=== PATIENT | male | born 1965 | race Caucasian/White ===

== ENCOUNTER 2017-11-01 12:19 | Emergency (ER) | payer OTHER ==
[~2017-11-01] VITALS: Ht 182.9 cm; Wt 108.9 kg
[2017-11-01] MEDS ORDERED: HYDR-971 PO (13:06)
[2017-11-01] MEDS ORDERED: CYCL-331 PO (13:06)
--- NOTE | 2017-11-01 13:06 | PHYS DOC ---
Past History Past Medical History: Diabetes, Hypertension Smoking: Non-smoker Adult General Chief Complaint Chief Complaint: BACK PAIN OR INJURY HPI HPI 52-year-old male patient complaining of sudden onset of left lower back pain since yesterday while moving heavy stuff above of his head and putting under his desk as a constant and sharp pain without radiation. Patient denies focal neurodeficit and urine and bowel incontinence. Patient denies pain in sitting position and complaining of pain with a standing up and bending over. Patient rated his pain 7/10 and does not want pain medication in ER. Review of Systems Review of Systems Constitutional: Denies fever or chills [] Eyes: Denies change in visual acuity, redness, or eye pain [] HENT: Denies nasal congestion or sore throat [] Respiratory: Denies cough or shortness of breath [] Cardiovascular: No additional information not addressed in HPI [] GI: Denies abdominal pain, nausea, vomiting, bloody stools or diarrhea [] : Denies dysuria or hematuria [] Musculoskeletal: Reports back pain or joint pain [] Integument: Denies rash or skin lesions [] Neurologic: Denies headache, focal weakness or sensory changes [] Endocrine: Denies polyuria or polydipsia [] All other systems were reviewed and found to be within normal limits, except as documented in this note. Allergies Allergies Allergies Coded Allergies Type Severity Reaction Last Updated Verified codeine Allergy Severe Anaphylaxis 11/01/17 Yes Physical Exam Physical Exam Constitutional: Well developed, well nourished, mild distress, non-toxic appearance. [] HENT: Normocephalic, atraumatic, bilateral external ears normal, oropharynx moist, no oral exudates, nose normal. [] Eyes: PERRLA, EOMI, conjunctiva normal, no discharge. [] Neck: Normal range of motion, no tenderness, supple, no stridor. [] Cardiovascular:Heart rate regular rhythm, no murmur [] Lungs & Thorax: Bilateral breath sounds clear to auscultation [] Abdomen: Bowel sounds normal, soft, no tenderness, no masses, no pulsatile masses. [] Skin: Warm, dry, no erythema, no rash. [] Back: No tenderness, no CVA tenderness, no midline tenderness or deformity, paraspinal muscle spasm. [] Extremities: No tenderness, no cyanosis, no clubbing, ROM intact, no edema. [] Neurologic: Alert and oriented X 3, normal motor function, normal sensory function, no focal deficits noted. [] Psychologic: Affect normal, judgement normal, mood normal. [] EKG EKG [] Radiology/Procedures Radiology/Procedures [] Course & Med Decision Making Course & Med Decision Making discharge: I've spoken with the patient and/or caregivers. I've explained the patient's condition, diagnosis and treatment plan based on information available to me at this time. I've answered the patient's and/or caregivers questions and addressed any concerns. The patient and/or caregivers have a good understanding the patient's diagnosis, condition and treatment plan as can be expected at this point. Vital signs have been stabilized. The patient's condition is stable for discharge from the emergency department. The patient will pursue further outpatient evaluation with her primary care provider or other designated consulting physician as outlined in the discharge instructions. Patient and/or caregivers are agreeable to this plan of care and follow-up instructions have been explained in detail. The patient and/or caregivers have received these instructions in written format and expressed understanding of these discharge instructions. The patient and her caregivers are aware that if any significant change in condition or worsening of symptoms should prompt him to immediately return to this of the closest emergency department. If an emergent department is not readily available I would encourage him to call 911. Bridgette Disclaimer Bridgette Disclaimer This electronic medical record was generated, in whole or in part, using a voice recognition dictation system. Departure Departure: Impression: Primary Impression: Lumbosacral strain Disposition: HOME, SELF-CARE (At 1304) Condition: STABLE Referrals: ZO TORRES (PCP) Patient Instructions: Lumbosacral Strain Additional Instructions: Apply ice to affected area Follow-up with your primary care physician in 3-5 days Return to ER if not getting better Scripts Cyclobenzaprine Hcl (CYCLOBENZAPRINE HCL) 10 Mg Tablet 1 TAB PO TID, #30 TAB Prov: FARIDA DUMAS MD 11/01/17 Hydrocodone Bit/Acetaminophen (NORCO 5-325 TABLET) 1 Each Tablet 1 TAB PO PRN Q6HRS Y for PAIN, #14 TAB 0 Refills Prov: FARIDA DUMAS MD 11/01/17 FARIDA DUMAS MD Nov 01, 2017 13:06
[2017-11-01 13:13] VITALS: BP 144/81
== END 2017-11-01 13:14 | disposition home or self-care (01) ==
LOC: ER 12:19
DX: S39.012A Strain of muscle, fascia and tendon of lower back, initial encounter (principal); I10 Essential (primary) hypertension; E11.9 Type 2 diabetes mellitus without complications; Z88.5 Allergy status to narcotic agent; X58.XXXA Exposure to other specified factors, initial encounter; Y93.89 Activity, other specified; Y99.8 Other external cause status; Y92.89 Other specified places as the place of occurrence of the external cause
CPT/HCPCS: 99283

== ENCOUNTER 2018-11-10 03:50 | Emergency (ER) | payer OTHER ==
[~2018-11-10] VITALS: Ht 182.9 cm; Wt 105.2 kg
[2018-11-10 03:50] VITALS: BP 131/72
[~2018-11-10 03:50] MED LIST: CYCL-331 PO; HYDR-3165 PO
--- NOTE | 2018-11-10 04:31 | PHYS DOC ---
Past History Past Medical History: Diabetes, Hypertension Past Surgical History: No Surgical History Smoking: Non-smoker Alcohol Use: Occasionally Drug Use: None Adult General Chief Complaint Chief Complaint: ANKLE PROBLEM HPI HPI 53-year-old male presents with right ankle pain. The patient was at work walking backwards with some equipment and he stepped onto a pallet isabella with his right foot. He felt his foot twisted but is unsure exactly how. He was trying not to fall. He did not fall to the ground. He felt like he might have a sprain, but try to continue to work. The pain has increased since that time and it is all along the top of his foot. He can bear weight with pain. He denies any other injuries or complaints. Review of Systems Review of Systems Constitutional: Denies fever or chills [] Eyes: Denies change in visual acuity, redness, or eye pain [] HENT: Denies nasal congestion or sore throat [] Respiratory: Denies cough or shortness of breath [] Cardiovascular: No additional information not addressed in HPI [] GI: Denies abdominal pain, nausea, vomiting, bloody stools or diarrhea [] : Denies dysuria or hematuria [] Musculoskeletal: Right ankle pain [] Integument: Denies rash or skin lesions [] Neurologic: Denies headache, focal weakness or sensory changes [] Endocrine: Denies polyuria or polydipsia [] All other systems were reviewed and found to be within normal limits, except as documented in this note. Allergies Allergies Allergies Coded Allergies Type Severity Reaction Last Updated Verified codeine Allergy Severe Anaphylaxis 11/01/17 Yes Physical Exam Physical Exam Constitutional: Well developed, well nourished, no acute distress, non-toxic appearance. [] HENT: Normocephalic, atraumatic, bilateral external ears normal, oropharynx moist, no oral exudates, nose normal. [] Eyes: PERRLA, EOMI, conjunctiva normal, no discharge. [] Neck: Normal range of motion, no tenderness, supple, no stridor. [] Cardiovascular:Heart rate regular rhythm, no murmur [] Lungs & Thorax: Bilateral breath sounds clear to auscultation [] Abdomen: Bowel sounds normal, soft, no tenderness, no masses, no pulsatile masses. [] Skin: Warm, dry, no erythema, no rash. [] Back: No tenderness, no CVA tenderness. [] Extremities: Tenderness over the superior mid foot, no ecchymosis, no swelling.[ ] Neurologic: Alert and oriented X 3, normal motor function, normal sensory function, no focal deficits noted. [] Psychologic: Affect normal, judgement normal, mood normal. [] Current Patient Data Vital Signs Vital Signs Date Time Temp Pulse Resp B/P (MAP) Pulse Ox O2 Delivery O2 Flow Rate FiO2 11/10/18 03:50 98.2 93 18 100 Room Air EKG EKG [] Radiology/Procedures Radiology/Procedures [] Impressions: Three-view right ankle dated 11/10/2018. No comparison available. CLINICAL INDICATION: Pain after injury. FINDINGS: 3 views right ankle show normal bony alignment. No displaced fracture. Talar dome is intact. No acute osseous or articular abnormality. There is mild soft tissue swelling. Prominent calcaneal spur. IMPRESSION: Soft tissue swelling with no evidence of underlying acute bony abnormality. Electronically signed by: Miles Mg MD (11/10/2018 4:40 AM) [facility] DICTATED AND SIGNED BY: MILES MG MD DATE: 11/10/18 0439 CC: JIM FLORIAN DO; ZO TORRES Three-view right foot dated 11/10/2018. No comparison available. CLINICAL INDICATION: Pain after injury. FINDINGS: 3 views of the right foot show normal bony alignment. No displaced fracture. No acute osseous or articular abnormality. There is a prominent plantar spur. Impression: No acute radiographic abnormality. Electronically signed by: Miles Mg MD (11/10/2018 4:52 AM) [facility] DICTATED AND SIGNED BY: MILES MG MD DATE: 11/10/18 0450 CC: JIM FLORIAN DO; ZO TORRES Course & Med Decision Making Course & Med Decision Making Pertinent Labs and Imaging studies reviewed. (See chart for details) The patient's foot is negative for fracture. His ankle is negative for fracture. He does have some mild soft tissue swelling. Believe the patient has a sprain of the midfoot. I've advised NSAID therapy and RICE therapy. He is stable for discharge at this time. [] Dragon Disclaimer Dragon Disclaimer This electronic medical record was generated, in whole or in part, using a voice recognition dictation system. Departure Departure: Impression: Primary Impression: Right foot sprain Disposition: 01 HOME, SELF-CARE Condition: STABLE Referrals: ZO TORRES (PCP) Patient Instructions: Foot Sprain-Brief Problem Qualifiers Primary Impression: Right foot sprain Encounter type: initial encounter Qualified Codes: S93.601A - Unspecified sprain of right foot, initial encounter JIM FLORIAN DO Nov 10, 2018 04:31
--- NOTE | 2018-11-10 04:43 | RAD ---
Three-view right ankle dated 11/10/2018. No comparison available. CLINICAL INDICATION: Pain after injury. FINDINGS: 3 views right ankle show normal bony alignment. No displaced fracture. Talar dome is intact. No acute osseous or articular abnormality. There is mild soft tissue swelling. Prominent calcaneal spur. IMPRESSION: Soft tissue swelling with no evidence of underlying acute bony abnormality. Electronically signed by: Miles Mg MD (11/10/2018 4:40 AM) [facility]
--- NOTE | 2018-11-10 04:54 | RAD ---
Three-view right foot dated 11/10/2018. No comparison available. CLINICAL INDICATION: Pain after injury. FINDINGS: 3 views of the right foot show normal bony alignment. No displaced fracture. No acute osseous or articular abnormality. There is a prominent plantar spur. Impression: No acute radiographic abnormality. Electronically signed by: Miles Mg MD (11/10/2018 4:52 AM) [facility]
[2018-11-10] MEDS ORDERED: KETOROLAC 60 MG/2 ML VIAL. IM ONE ×2 (05:14→05:15)
== END 2018-11-10 05:34 | disposition home or self-care (01) ==
LOC: ER 03:50
DX: S93.601A Unspecified sprain of right foot, initial encounter (principal); E11.9 Type 2 diabetes mellitus without complications; I10 Essential (primary) hypertension; Z88.5 Allergy status to narcotic agent; X50.1XXA Overexertion from prolonged static or awkward postures, initial encounter; Y93.89 Activity, other specified; Y92.89 Other specified places as the place of occurrence of the external cause; Y99.8 Other external cause status
CPT/HCPCS: 73610; 73630; 96372; 99283; J1885